=== PATIENT | female | born 1990 | race Caucasian/White ===

== ENCOUNTER 2022-04-21 20:37 | Observation (INO) | payer BC, OTHER, SELFPAY ==
[~2022-04-21 20:37] MED LIST: Iopamidol-370 76% 500 ML 1 ML ONE
[2022-04-21 21:18] LABS: #Eosinphils 0.1 thou/uL (0.0-0.7); #Lymphocytes 2.1 thou/uL (1.20-3.40); #Monocytes 0.7 thou/uL (0.11-0.59); #Neutrophils 9.6 thou/uL (1.40-6.50); %Basophils 0.2 % (0.0-1.0); %Eosinophils 0.5 % (0.0-10.0); %Monocytes 5.6 % (0.0-10.0); %Neutrophils 76.8 % (42.0-75.0); Hemoglobin 15.8 g/dL (12.0-16.0); Mean Corpuscular HGB CONC 33.5 g/dL (32.0-36.0); Mean Corpuscular Hemoglobin 32.1 pg (27.0-31.0); Mean Corpuscular Volume 95.6 fl (78.0-98.0); Mean Platelet Volume 6.4 fL (7.4-10.4); Platelet Count 387 10x3/uL (130-400); RBC Distribution Width 11.6 % (11.5-14.5); Red Blood Cell (RBC) Count 4.92 mill/uL (4.20-5.40); White Blood Cell (WBC) Count 12.4 10x3/uL (4.8-10.8)
[2022-04-21] MEDS ORDERED: Ondansetron ODT 4 MG TAB ONE (21:28)
[2022-04-21 21:29] LABS: BHCG - Serum Negative (NEGATIVE); Pregs Control Background? CLEAR/WHITE (CLR/WHITE); Pregs Control Bar Appear? YES (CONTROL BAR)
[2022-04-21 21:47] LABS: ALT (SGPT) 13 U/L (8-55); AST (SGOT) 17 U/L (5-34); Albumin 4.1 g/dL (3.5-5.0); Alkaline Phosphatase 99 U/L (40-110); Anion Gap 14 mmol/L (10-20); BUN (Urea Nitrogen) 11 mg/dL (7.0-18.7); Bilirubin, Total 0.4 mg/dL (0.2-1.2); Calc. Creatinine Clearance 0 mL/min (70-130); Calcium 8.7 mg/dL (7.8-10.44); Carbon Dioxide 22 mmol/L (22-29); Chloride 106 mmol/L (98-107); Estimated GFR 82; Globulin 3.6 g/dL (2.4-3.5); Glucose 81 mg/dL (70-105); Lipase 10 U/L (8-78); Protein, Total 7.7 g/dL (6.0-8.3); Sodium 138 mmol/L (136-145)
[2022-04-21] MEDS ORDERED: Ondansetron PF 4 MG/2 ML Vial ONE (22:16)
[2022-04-22] MEDS ORDERED: Prochlorperazine 10 MG/2 ML VIAL ONE (00:02)
[2022-04-22] MEDS ORDERED: Lidocaine Viscous Sol 2% 15 ml UD Cup ONE (00:29)
[2022-04-22] MEDS ORDERED: Benzocaine 20% Spray 60 ML CAN ONE (00:29)
[2022-04-22] MEDS ORDERED: Pantoprazole 40 MG VIAL ONE (00:55)
[2022-04-22] MEDS ORDERED: Promethazine HCl 25 MG in Sodium Chloride 0.9% 50 ML IVPB PRN (01:10)
[2022-04-22] MEDS ORDERED: Acetaminophen 325 MG TAB PO PRN (01:10)
[2022-04-22 03:34] VITALS: BMI 32.8
[2022-04-22] MEDS: Sodium Chloride 0.9% 1,000 ML IV SCH ×3 (04:38→18:34)
[2022-04-22] MEDS: Pantoprazole 40 MG VIAL IVP SCH ×2 (08:52→19:34)
[2022-04-22 09:40] LABS: #Basophils 0.1 thou/uL (0.0-0.2); #Eosinphils 0.1 thou/uL (0.0-0.7); #Lymphocytes 2.2 thou/uL (1.20-3.40); #Monocytes 0.6 thou/uL (0.11-0.59); #Neutrophils 5.2 thou/uL (1.40-6.50); %Basophils 0.7 % (0.0-1.0); %Eosinophils 1.6 % (0.0-10.0); %Monocytes 7.3 % (0.0-10.0); %Neutrophils 63.5 % (42.0-75.0); Hemoglobin 14.3 g/dL (12.0-16.0); Mean Corpuscular Hemoglobin 31.7 pg (27.0-31.0); Mean Corpuscular Volume 95.9 fl (78.0-98.0); Mean Platelet Volume 6.6 fL (7.4-10.4); Platelet Count 321 10x3/uL (130-400); RBC Distribution Width 11.4 % (11.5-14.5); Red Blood Cell (RBC) Count 4.52 mill/uL (4.20-5.40); White Blood Cell (WBC) Count 8.3 10x3/uL (4.8-10.8)
[2022-04-22 10:11] LABS: Anion Gap 10 mmol/L (10-20); BUN (Urea Nitrogen) 11 mg/dL (7.0-18.7); Calc. Creatinine Clearance 128 mL/min (70-130); Calcium 8.2 mg/dL (7.8-10.44); Carbon Dioxide 22 mmol/L (22-29); Chloride 110 mmol/L (98-107); Estimated GFR 84; Glucose 81 mg/dL (70-105); Magnesium 2.3 mg/dL (1.6-2.6); Phosphorus 1.9 mg/dL (2.3-4.7); Potassium 3.9 mmol/L (3.5-5.1); Sodium 138 mmol/L (136-145)
[2022-04-22] MEDS ORDERED: Sodium Phosphate 15 MMOL in Sodium Chloride 0.9% 250 ML 250 ML IVPB SCH (12:00)
[2022-04-22] MEDS ORDERED: FENTANYL 50 MCG/ML 1 ML VIAL ONE (13:38)
[2022-04-22] MEDS ORDERED: Dexamethasone 20 MG/5 ML VIAL ONE (13:55)
[2022-04-22] MEDS ORDERED: Succinylcholine 200 MG/10 ml SYRINGE FS ONE (13:55)
[2022-04-22] MEDS ORDERED: Ondansetron PF 4 MG/2 ML Vial ONE (13:55)
[2022-04-22] MEDS ORDERED: PROPOFOL 200 MG/20 ML VIAL ONE (13:55)
[2022-04-22] MEDS ORDERED: Ondansetron HCl/PF 4 MG/2 ML Vial IVP PRN (14:08)
[2022-04-22] MEDS ORDERED: Promethazine HCl 25 MG/ML VIAL IM PRN (14:08)
[2022-04-22] MEDS ORDERED: Promethazine HCl 25 MG/ML VIAL IVPB PRN (14:08)
[2022-04-22] MEDS ORDERED: HYDROmorphone 2 MG/ML VIAL SLOW IVP PRN (14:08)
[2022-04-22] MEDS ORDERED: Ondansetron PF 4 MG/2 ML Vial IVP SCH (22:30)
[2022-04-22] MEDS ORDERED: DULoxetine 20 MG CAP PO SCH (22:45)
[2022-04-23] MEDS: Sodium Chloride 0.9% 1,000 ML IV SCH (02:16)
[2022-04-23 06:30] LABS: #Lymphocytes 2.5 thou/uL (1.20-3.40); #Monocytes 0.8 thou/uL (0.11-0.59); #Neutrophils 9.3 thou/uL (1.40-6.50); %Basophils 0.2 % (0.0-1.0); %Eosinophils 0.2 % (0.0-10.0); %Lymphocytes 19.7 % (21.0-51.0); %Monocytes 6.1 % (0.0-10.0); %Neutrophils 73.8 % (42.0-75.0); Hemoglobin 13.8 g/dL (12.0-16.0); Mean Corpuscular HGB CONC 33.2 g/dL (32.0-36.0); Mean Corpuscular Hemoglobin 31.7 pg (27.0-31.0); Mean Corpuscular Volume 95.4 fl (78.0-98.0); Mean Platelet Volume 6.3 fL (7.4-10.4); Platelet Count 314 10x3/uL (130-400); RBC Distribution Width 11.1 % (11.5-14.5); Red Blood Cell (RBC) Count 4.36 mill/uL (4.20-5.40); White Blood Cell (WBC) Count 12.7 10x3/uL (4.8-10.8)
[2022-04-23 07:11] LABS: Anion Gap 12 mmol/L (10-20); BUN (Urea Nitrogen) 8 mg/dL (7.0-18.7); Calc. Creatinine Clearance 154 mL/min (70-130); Calcium 7.9 mg/dL (7.8-10.44); Carbon Dioxide 19 mmol/L (22-29); Chloride 107 mmol/L (98-107); Estimated GFR 106; Glucose 94 mg/dL (70-105); Magnesium 2.1 mg/dL (1.6-2.6); Potassium 3.8 mmol/L (3.5-5.1); Sodium 134 mmol/L (136-145)
[2022-04-23] MEDS: Pantoprazole 40 MG VIAL IVP SCH (08:36)
[2022-04-23] MEDS ORDERED: DULoxetine 20 MG CAP PO SCH (09:00)
[2022-04-23 11:04] VITALS: BP 124/84; TEMP 98
== END 2022-04-23 11:05 | disposition home or self-care (01) ==
LOC: ERS 20:37 → T4-B 04-22 01:10
PROVIDERS: ADMIT Family Medicine; ATTEND Family Medicine
PROC: 0DJD8ZZ Inspection of Lower Intestinal Tract, Via Natural or Artificial Opening Endoscopic (ICD-10-PCS; principal; 2022-04-22)
DX: R11.2 Nausea with vomiting, unspecified (principal); R93.3 Abnormal findings on diagnostic imaging of other parts of digestive tract; D72.829 Elevated white blood cell count, unspecified; E28.2 Polycystic ovarian syndrome; G89.4 Chronic pain syndrome; F17.210 Nicotine dependence, cigarettes, uncomplicated; Z85.42 Personal history of malignant neoplasm of other parts of uterus; Z87.11 Personal history of peptic ulcer disease; Z79.899 Other long term (current) drug therapy; Z88.5 Allergy status to narcotic agent; Z88.8 Allergy status to other drugs, medicaments and biological substances; Z91.010 Allergy to peanuts; Z91.018 Allergy to other foods; Z91.040 Latex allergy status; Z96.82 Presence of neurostimulator; Z20.822 Contact with and (suspected) exposure to COVID-19
CPT/HCPCS: 36415; 74018; 74177; 80048; 80053; 83690; 83735; 84100; 84703; 85025; 87804; 96361; 96372; 96374; 96375; 96376; C9113; G0378; J0780; J1100; J2405; J2550; J2704; J3010; J7050; Q0162; Q9967; U0003; U0005